=== PATIENT | male | born 1980 | race Caucasian/White ===

== ENCOUNTER 2016-08-27 23:55 | Emergency (ER) | payer OTHER ==
[2016-08-28 00:27] VITALS: BP 145/91
[2016-08-28] MEDS ORDERED: Acetaminophen/HYDROcodone 325-5 MG Tab PO ONE (00:43)
--- NOTE | 2016-08-28 01:11 | EDM.PDOC ---
ED HPI Trauma - General Chief Complaint: Lower Extremity Injury/Pain Stated Complaint: LT KNEE TWISTED Time Seen by Provider: 08/28/16 00:30 Source: Reports: Patient History Limitations: Reports: No limitations - History of Present Illness INITIAL COMMENTS - FREE TEXT/NARRATIVE: Rip is employed by [employer] out of [place], [place]. He finished a job, and was descending a ladder at 11 pm when his L leg suddenly rotated twisting his L knee outward, producing pain along the medial aspect of the L knee. There was no visible deformity. He was able to descend off the ladder without falling, and drove himself to the [facility] ED for assessment. He has no prior his of L knee injury. He has taken no meds. Allergies/ADRs: Allergies No Known Allergies Allergy (Verified 08/28/16 00:34) Home Medications: Ambulatory Orders NK [No Known Home Meds] 08/28/16 [Confirmed 08/28/16] Past Medical History - Past Surgical History Head Surgeries/Procedures: Reports: None HEENT Surgical History: Reports: None Cardiovascular Surgical History: Reports: None Respiratory Surgical History: Reports: None GI Surgical History: Reports: None Musculoskeletal Surgical History: Reports: Arthroscopic knee (R knee arthroscopy ) Dermatological Surgical History: Reports: None Review of Systems - Review of Systems Review Of Systems: See Below Constitutional: Reports: no symptoms Eyes: Reports: no symptoms Ears: Reports: no symptoms Nose: Reports: no symptoms Mouth/Throat: Reports: no symptoms Respiratory: Reports: No Symptoms Cardiovascular: Reports: no symptoms GI/Abdominal: Reports: No symptoms Genitourinary: Reports: no symptoms Musculoskeletal: Reports: leg pain (L knee), joint pain (L knee) Skin: Reports: no symptoms Neurological: Reports: No Symptoms Psychiatric: Reports: no symptoms Trauma Exam - Physical Exam Exam: See Below Exam Limited By: No limitations General Appearance: Reports: alert, WD/WN, moderate distress Head: Reports: atraumatic, normocephalic Neck: Reports: non-tender, full range of motion, normal alignment, normal inspection Respiratory Exam: Reports: lungs clear, normal breath sounds Cardiovascular: Reports: normal peripheral pulses, regular rate, rhythm Back: Reports: full range of motion, normal inspection Extremities: Reports: pain with movement (L knee), tenderness (L knee overlying MCL) Neurologic: Reports: director software II-XII nml as tested, no motor/sensory deficits, alert , normal mood/affect, oriented x 3 Skin: Reports: Normal color, Warm/dry Course - Vital Signs Text/Narrative:: Rip was admitted to the [facility] ED, and administered a Vicodin 5-325 for pain and fitted with crutches before discharge Last Recorded V/S: Last Vital Signs Temp 36.9 C 08/28/16 00:01 Pulse 94 08/28/16 00:01 Resp 18 08/28/16 00:01 BP 145/91 H 08/28/16 00:01 Pulse Ox 99 08/28/16 00:01 Departure - Departure Time of Disposition: 01:00 Disposition: Home, Self-Care 01 Condition: fair Clinical Impression: Sprain of medial collateral ligament of left knee, initial encounter Qualifiers: Encounter type: initial encounter Qualified Code(s): S83.412A - Sprain of medial collateral ligament of left knee, initial encounter Instructions: Knee Sprain, [id number] Referrals: PCP,None [Primary Care Provider] - Forms: ED Department Discharge Additional Instructions: Toe touch weight bearing and crutches until cleared by your regular doctor. No work until you are cleared by your doctor. Use Vicodin, and ibuprofen for pain. Rest, elevate, and ice the affected area 4 times a day, at least. See your doctor on Friday for re-evaluation. - Problem List & Annotations (1) Sprain of medial collateral ligament of left knee, initial encounter SNOMED Code(s): 32802782 Code(s): S83.412A - SPRAIN OF MEDIAL COLLATERAL LIGAMENT OF LEFT KNEE, INIT Status: Acute Current Visit: Yes Annotation/Comment:: A First Report of Injury was unavailable. He was dispensed Hydrocodone 5/325 taken q 6 hrs prn for mod-severe pain, and NSAIDs for mild-mod pain. RICE, crutches with partial wt bearing, medical leave from work until seen by PCP later this week. Qualifiers: Encounter type: initial encounter Qualified Code(s): S83.412A - Sprain of medial collateral ligament of left knee, initial encounter - Problem List Review Problem List Initiated/Reviewed/Updated: Yes - Assessment/Plan Plan: Follow up with PCP.
== END 2016-08-28 00:10 | disposition home or self-care (01) ==
LOC: FB.ED 23:55
DX: S83.412A Sprain of medial collateral ligament of left knee, initial encounter (principal); W10.9XXA Fall (on) (from) unspecified stairs and steps, initial encounter
CPT/HCPCS: 99282; A9270-GY